=== PATIENT | female | born 1975 | race Two or more races ===

== ENCOUNTER 2017-02-18 14:55 | Emergency (ER) | payer BC ==
[~2017-02-18] VITALS: Ht 157.5 cm; Wt 78.3 kg
[2017-02-18 14:59] VITALS: Ht 157.5 cm; Wt 78.3 kg
[2017-02-18] MEDS ORDERED: ONDANSETRON 4 MG INJ IV STA (15:34)
[2017-02-18] MEDS ORDERED: SOD CHLORIDE 0.9% 1,000 ML IV STA (15:34)
[2017-02-18 16:17] LABS: ADD SCAN DIFF NO
[2017-02-18 16:19] LABS: BASOPHIL # 0.1 10^3/ul (0.0-0.1); BASOPHILS % 0.7 % (0.0-2.0); EOSINOPHILS # 0.4 10^3/ul (0.0-0.5); EOSINOPHILS % 3.6 % (0.0-7.0); HEMATOCRIT 41.9 % (37.0-47.0); HEMOGLOBIN 13.7 g/dl (12.0-16.0); LYMPHOCYTES # 3.3 10^3/ul (0.8-2.9); LYMPHOCYTES % 30.4 % (15.0-51.0); MEAN CORPUSCULAR HEMOGLOBIN 26.8 pg (29.0-33.0); MEAN CORPUSCULAR HGB CONC 32.7 g/dl (32.0-37.0); MEAN PLATELET VOLUME 8.9 fl (7.4-10.4); MONOCYTE # 0.7 10^3/ul (0.3-0.9); MONOCYTES % 6.3 % (0.0-11.0); NEUTROPHIL # 6.4 10^3/ul (1.6-7.5); NEUTROPHILS % 58.7 % (39.0-77.0); PLATELET COUNT 408 10^3/UL (140-415); RED BLOOD COUNT 5.11 10^6/ul (4.20-5.40); RED CELL DISTRIBUTION WIDTH 13.9 % (11.5-14.5); WHITE BLOOD COUNT 10.9 10^3/ul (4.8-10.8)
[2017-02-18 16:25] LABS: ADD UMIC YES; URINE BILIRUBIN (Dip) NEGATIVE (NEGATIVE); URINE BLOOD (Dip) NEGATIVE (NEGATIVE); URINE COLOR LT. YELLOW (YELLOW); URINE GLUCOSE (Dip) NEGATIVE (NEGATIVE); URINE KETONES (Dip) 15 (NEGATIVE); URINE LEUKOCYTE ESTERASE (Dip) NEGATIVE (NEGATIVE); URINE NITRITE (Dip) NEGATIVE (NEGATIVE); URINE TOTAL PROTEIN (Dip) NEGATIVE (NEGATIVE); URINE UROBILINOGEN (Dip) 0.2 E.U./dL (0.1-1.0)
--- NOTE | 2017-02-18 16:29 | ERD ---
ER Documentation Chief Complaint Date/Time DATE: 02/18/17 TIME: 16:26 Chief Complaint nausea,dizziness, has flu also HPI This patient is a Ab1 LC 1 presenting to the emergency department with complaints of vertigo, fatigue, and mild suprapubic pain. She additionally reports nausea. The patient's LMP was January 01, 2017. The patient has taken no medications at home for relief of her symptoms. The patient denies any syncope, vaginal bleeding, vomiting, diarrhea, urinary symptoms, or other symptoms at this time. ROS All systems reviewed and are negative except as per history of present illness. Medications Home Meds Active Scripts Acetaminophen* (Tylenol*) 325 Mg Tablet, 2 TAB PO Q6 Y for PAIN AND OR ELEVATED TEMP, #20 TAB Prov:MARGIE HERNANDEZ PA-C 02/18/17 Allergies Allergies: Coded Allergies: No Known Allergy (Unverified , 02/18/17) PMhx/Soc History of Surgery: Yes (FIBRIOD SURG) Anesthesia Reaction: No Hx Neurological Disorder: No Hx Respiratory Disorders: No Hx Cardiac Disorders: No Hx Psychiatric Problems: No Hx Miscellaneous Medical Probl: No Hx Alcohol Use: No Hx Substance Use: No Hx Tobacco Use: No Smoking Status: Unknown if ever smoked FmHx Noncontributory for chief complaint Physical Exam Vitals Vital Signs Date Time Temp Pulse Resp B/P Pulse Ox O2 Delivery O2 Flow Rate FiO2 02/18/17 18:16 88 16 129/68 16 Room Air 02/18/17 14:59 98.1 99 20 117/76 99 Physical Exam Const: The patient is resting comfortably in no acute distress. Head: Atraumatic Eyes: Normal Conjunctiva. There was no horizontal nystagmus or vertical nystagmus noted on exam. ENT: Normal External Ears, Nose and Mouth. Neck: Full range of motion..~ No meningismus. Resp: Clear to auscultation bilaterally Cardio: Regular rate and rhythm, no murmurs Abd: Soft, non tender, non distended. Normal bowel sounds : There is mild suprapubic tenderness to palpation on the right side. There is no CVA tenderness. Skin: No petechiae or rashes Back: No midline or flank tenderness Ext: No cyanosis, or edema Neur: Awake and alert Psych: Normal Mood and Affect Result Diagram: 02/18/17 1605 02/18/17 1605 Results 24 hrs Laboratory Tests Test 02/18/17 16:05 White Blood Count 10.910^3/ul Red Blood Count 5.1110^6/ul Hemoglobin 13.7g/dl Hematocrit 41.9% Mean Corpuscular Volume 82.0fl Mean Corpuscular Hemoglobin 26.8pg Mean Corpuscular Hemoglobin Concent 32.7g/dl Red Cell Distribution Width 13.9% Platelet Count 39059^3/UL Mean Platelet Volume 8.9fl Neutrophils % 58.7% Lymphocytes % 30.4% Monocytes % 6.3% Eosinophils % 3.6% Basophils % 0.7% Nucleated Red Blood Cells % 0.0/100WBC Neutrophils # 6.410^3/ul Lymphocytes # 3.310^3/ul Monocytes # 0.710^3/ul Eosinophils # 0.410^3/ul Basophils # 0.110^3/ul Nucleated Red Blood Cells # 0.010^3/ul Urine Color LT. YELLOW Urine Clarity CLOUDY Urine pH 8.5 Urine Specific [place] 1.020 Urine Ketones 15 Urine Nitrite NEGATIVE Urine Bilirubin NEGATIVE Urine Urobilinogen 0.2 E.U./dL Urine Leukocyte Esterase NEGATIVE Urine Microscopic RBC NONE SEEN/HPF Urine Microscopic WBC 2-5/HPF Urine Squamous Epithelial Cells MANY Urine Amorphous Urates FEW Urine Bacteria MODERATE Urine Hemoglobin NEGATIVE Urine Glucose NEGATIVE% Urine Total Protein NEGATIVE Sodium Level 137mmol/L Potassium Level 3.9mmol/L Chloride Level 102mmol/L Carbon Dioxide Level 24mmol/L Anion Gap 15 Blood Urea Nitrogen 11mg/dl Creatinine 0.59mg/dl Glucose Level 101mg/dl Calcium Level 9.6mg/dl Total Bilirubin 0.2mg/dl Direct Bilirubin 0.00mg/dl Indirect Bilirubin 0.2mg/dl Aspartate Amino Transf (AST/SGOT) 29IU/L Alanine Aminotransferase (ALT/SGPT) 42IU/L Alkaline Phosphatase 72IU/L Total Protein 8.3g/dl Albumin 4.4g/dl Globulin 3.90g/dl Albumin/Globulin Ratio 1.12 Lipase 102U/L Beta HCG, Quantitative 81418.0mIU/ml Current Medications Medications (Trade) Dose Ordered Sig/Varun Route PRN Reason Start Time Stop Time Status Last Admin Dose Admin Sodium Chloride (NS) 1,000 ml @ 1,000 mls/hr Q1H STAT IV 02/18/17 15:34 02/18/17 16:33 DC 02/18/17 16:15 Ondansetron HCl (Zofran Inj) 4 mg ONCE STAT IV 02/18/17 15:34 02/18/17 15:39 DC 02/18/17 16:15 Procedures/MDM EMERGENCY DEPARTMENT COURSE / MEDICAL DECISION MAKING: This is a 42-year-old female who comes to the emergency room secondary to complaints of suprapubic pain and slight vertigo and nausea. The patient was given IV fluids and IV Zofran and p.o. Tylenol in the department. On re-evaluation, the patient was feeling improved. Lab results reviewed and showed no significant acute abnormalities. UA was negative for infection or proteinuria. Beta hCG was consistent with term of . Radiology: PROCEDURE: OB Ultrasound. CLINICAL INDICATION: Positive test. Pelvic pain. TECHNIQUE: Ultrasound of the pelvis was performed with transabdominal and transvaginal sonography in the axial and sagittal planes. COMPARISON: No prior study is available for comparison. FINDINGS: There is a single intrauterine gestational sac. pole and yolk sac are present. There is heart motion. heart rate is 117 beats per minute. [place]-rump length is 0.51 cm. Mean sac diameter is 1.71 cm. Menstrual age by ultrasound dates is 6 weeks 3 days. This indicates an expected date of delivery of 10/11/2017. The right ovary is not visualized. The left ovary appears normal measuring 3.4 x 2.0 x 2.4 cm. Color Doppler and pulsed Doppler sonography demonstrate normal flow to the left ovary. There is a fundal fibroid measuring 2.1 cm and a fundal fibroid measuring 1.5 cm. There is no other pelvic mass and there is no free fluid. IMPRESSION: 1. Single live intrauterine gestation of 6 weeks 3 days menstrual age by ultrasound dates. 2. Expected date of delivery is 10/11/2017. 3. Small fibroids in the uterus. 4. Otherwise unremarkable study. RPTAT: QQ .Camilo Berg MD, MD Date Time Electronically viewed and signed by .Camilo Berg MD, MD on 02/18/2017 17:31 .R/ CC: MARGIE HERNANDEZ PA-C The primary diagnosis is with suprapubic pain, antepartum. I have low suspicion for ectopic , ovarian torsion, abruptio placenta, septicemia, urinary tract infection, arthritis, or other emergent conditions at this time. Discharge: I have discussed the lab results and diagnostic findings with the patient and answered any questions or concerns. The patient was discharged with a prescription for Tylenol. The patient should follow-up with an MANAGER CT specialist as soon as possible. The patient was advised to followup with their PMD in 1-2 days and to return to the Emergency Department if there are any new or worsening symptoms. The patient understood and agreed with the diagnosis, treatment and plan. The patient is stable for discharge at this time. Departure Diagnosis: Primary Impression: with suprapubic pain, antepartum Condition: Stable Patient Instructions: Abdominal Pain, Early Referrals: [facility] Additional Instructions: Please follow-up with your MANAGER CT specialist as soon as possible. Follow-up with your primary care physician within 1 week. Return to the emergency department immediately should you have any new or worsening symptoms, uncontrolled fevers, or other unexplained symptoms. Take all medications as directed. MARGIE HERNANDEZ PA-C Feb 18, 2017 16:29
[2017-02-18 16:33] LABS: BACTERIA,URINE MODERATE; SQUAMOUS EPITHELIAL CELL,UR MANY; URINE RBCS NONE SEEN /HPF (0)
[2017-02-18 16:34] LABS: ALBUMIN 4.4 g/dl (3.3-4.9); POTASSIUM 3.9 mmol/L (3.5-5.1)
[2017-02-18 16:37] LABS: ALBUMIN/GLOBULIN RATIO 1.12; BILIRUBIN,INDIRECT 0.2 mg/dl (0-1.1); BILIRUBIN,TOTAL 0.2 mg/dl (0.2-1.3); CALCIUM 9.6 mg/dl (8.4-10.2); CREATININE 0.59 mg/dl (0.44-1.00); TOTAL PROTEIN 8.3 g/dl (6.1-8.1)
--- NOTE | 2017-02-18 17:32 | RADRPT ---
PROCEDURE: OB Ultrasound. CLINICAL INDICATION: Positive test. Pelvic pain. TECHNIQUE: Ultrasound of the pelvis was performed with transabdominal and transvaginal sonography in the axial and sagittal planes. COMPARISON: No prior study is available for comparison. FINDINGS: There is a single intrauterine gestational sac. pole and yolk sac are present. There is heart motion. heart rate is 117 beats per minute. [place]-rump length is 0.51 cm. Mean sac diameter is 1.71 cm. Menstrual age by ultrasound dates is 6 weeks 3 days. This indicates an expected date of delivery of 10/11/2017. The right ovary is not visualized. The left ovary appears normal measuring 3.4 x 2.0 x 2.4 cm. Color Doppler and pulsed Doppler sonography demonstrate normal flow to the left ovary. There is a fundal fibroid measuring 2.1 cm and a fundal fibroid measuring 1.5 cm. There is no other pelvic mass and there is no free fluid. IMPRESSION: 1. Single live intrauterine gestation of 6 weeks 3 days menstrual age by ultrasound dates. 2. Expected date of delivery is 10/11/2017. 3. Small fibroids in the uterus. 4. Otherwise unremarkable study. RPTAT: QQ .Camilo Berg MD, MD Date Time Electronically viewed and signed by .Camilo Berg MD, on 02/18/2017 17:31 .R/
[2017-02-18] MEDS ORDERED: ACET325T33 PO (17:53)
[2017-02-18 18:16] VITALS: BP 129/68; PULSE 88; RESP 16
== END 2017-02-18 18:16 | disposition home or self-care (01) ==
LOC: FTE 14:55
DX: O26.891 Other specified pregnancy related conditions, first trimester (principal); R10.30 Lower abdominal pain, unspecified; R10.2 Pelvic and perineal pain; Z3A.01 Less than 8 weeks gestation of pregnancy
CPT/HCPCS: 76801; 76817; 80053; 81001; 83690; 84702; 85025; 86900; 86901; 87086; J2405; J7030; 81003; 96374

== ENCOUNTER 2019-07-10 16:36 | Emergency (ER) | payer BC ==
[~2019-07-10] VITALS: Ht 154.9 cm; Wt 73.5 kg
[~2019-07-10 16:36] MED LIST: ACET325T33 PO; CLIN300C10 PO; NAPR-985 PO
[2019-07-10 16:49] VITALS: Ht 154.9 cm; Wt 73.5 kg
[2019-07-10] MEDS ORDERED: KETOROLAC 30 MG INJ IM STA (17:19)
[2019-07-10] MEDS ORDERED: ACETAMINOPHEN 325 MG TAB PO ONE (17:30)
[2019-07-10] MEDS ORDERED: LIDOCAINE 1% (MDV) 20 ML INJ SC ONE (17:30)
[2019-07-10] MEDS ORDERED: CLINDAMYCIN 900 MG INJ IM ONE (18:30)
[2019-07-10 19:17] VITALS: BP 122/82; PULSE 84; RESP 16
== END 2019-07-10 19:30 | disposition home or self-care (01) ==
LOC: FTE 16:36
DX: L02.415 Cutaneous abscess of right lower limb (principal)
CPT/HCPCS: 10060; 81025; 82962; 87070; 96372; J1885; S0077; Z7502; Z7610